=== PATIENT | female | born 1985 | race Caucasian/White ===

== ENCOUNTER 2018-11-23 07:13 | Day surgery (SDC) | payer BC ==
[~2018-11-23] VITALS: Ht 170.2 cm; Wt 129.5 kg
[~2018-11-23 07:13] MED LIST: CARV25TA2 PO; DOXY100C14 PO; FERR325T14 PO; GABA600T7 PO; GENT30OI2 TP; HYDROmorphone 2 MG/ML VIAL IV PRN; IV RINGERS,LACTATED 1000ML 1,000 ML IV SCH; LEVO50TA5 PO; LIDOCAINE 1% PF 2 ML VIAL. ID PRN; MORPHINE SULFATE 2 MG/ML VIAL. IV PRN; NORG1TAB40 PO; ONDANSETRON PF 4 MG/2 ML VIAL. IV PRN; PROCHLORPERAZINE 10 MG/2 ML VIAL. IV PRN; SACU1TAB PO; SERT100T8 PO; TRAM50TA PO; [UNRECOGNIZED DRUG - OTHER] PO; ceFAZolin SODIUM 3 GM in IV DEXTROSE 5% 100ML 100 ML IV PRN; fentaNYL PF VIAL 100 MCG/2 ML VIAL IV PRN
[2018-11-23] MEDS ORDERED: BUPIVACAINE MPF 0.5% 30 ML VIAL. ONE (07:32)
[2018-11-23] MEDS ORDERED: LIDOCAINE 2% PF 5 ML VIAL. ONE (08:26)
[2018-11-23] MEDS ORDERED: PROPOFOL 20 ML IV ONE (08:26)
[2018-11-23] MEDS ORDERED: fentaNYL PF VIAL 100 MCG/2 ML VIAL ONE ×2 (08:26→09:41)
[2018-11-23] MEDS ORDERED: ROCURONIUM 50 MG/5 ML VIAL. ONE (08:26)
[2018-11-23 08:34] LABS: CALCIUM 10.3 mg/dL (8.5-10.1); CREATININE 2.4 mg/dL (0.6-1.0); GFR 23.4; POTASSIUM 5.1 mmol/L (3.5-5.1)
[2018-11-23] MEDS ORDERED: ETOMIDATE 20 MG/10 ML VIAL. IV ONE (08:35)
[2018-11-23 08:37] LABS: ALBUMIN 2.6 g/dL (3.4-5.0); ALBUMIN/GLOBULIN RATIO 0.4 (1.0-1.7); TOTAL BILIRUBIN 1.4 mg/dL (0.2-1.0)
--- NOTE | 2018-11-23 08:37 | PDOC ---
SURGICAL PROGRESS NOTE Subjective 33 yo F with multiple indurated, painful skin lesions, purplish in color with some now ulcerating. TO OR for biopsy. Left pannus lesion selected with pt. R/R/B/A d/w pt and pt's supportive mother. Risks, including, but not limited to: bleeding, infection, damage to surrounding structures, risk of anesthesia, risk of wound complications. They appear to understand, their questions are answered and they elect to proceed. Office note reviewed and unchanged. Vital Signs Vital Signs Date Time Temp Pulse Resp B/P (MAP) Pulse Ox O2 Delivery O2 Flow Rate FiO2 11/23/18 07:59 97.8 84 20 93/58 96 Room Air 97.8 JACOB CAMPBELL MD Nov 23, 2018 08:37
[2018-11-23] MEDS ORDERED: ONDANSETRON PF 4 MG/2 ML VIAL. ONE (09:34)
[2018-11-23] MEDS ORDERED: DEXAMETHASONE SOD PHOS 4 MG/ML VIAL ONE (09:35)
[2018-11-23] MEDS ORDERED: SEVOFLURANE 31 TO 60 MINUTES. IH ONE (10:04)
--- NOTE | 2018-11-23 10:33 | PDOC4 ---
OPERATIVE NOTE Date: Date: Nov 23, 2018 Pre-Op Diagnosis: Skin lesions on pannus Post-Op Diagnosis: same Procedure Performed: Excisional biopsy of abdominal wall pannus, LLQ Surgeon: Ty Campbell Anesthesia Type: GETA plus local Blood Loss: 10 Specimans Obtained: Skin ulcer Findings: Multiple indurated skin lesions of pannus Complications: none Operative Note: After obtaining informed consent, patient was taken to OR, induced under GETA and prepped in the usual fashion. LLQ abdominal wall pannus lesion selected. Transverse elliptical incision made with cautery, approximately 5 cm diameter. Incision carried down through skin and subcutaneous fat, excising indurated area. Specimen sent to lab for evaluation. Culture obtained of skin fold ulceration. Skin repaired with 3 0 vicryl and 4 0 monocryl in loose, interrupted fashion. Dressing placed. Patient tolerated procedure well and sent to PACU in stable condition. All counts correct. Wound class is 4. JACOB CAMPBELL MD Nov 23, 2018 10:33
[2018-11-23] MEDS ORDERED: HYDROcodone/APAP 5/325MG 1 TAB TABLET PO ONE (10:45)
[2018-11-23 10:56] VITALS: BP 103/49
--- NOTE | 2018-11-29 18:05 | PATHOLOGY ---
[facility] Accession Number: [id number] . 01 Material submitted: . abdomen - ABDOMINAL WALL BIOPSY . 01 Clinical history: . R/O calciphylaxis, abdominal skin lesions. . 02 Diagnosis: Skin, abdominal wall: - Consistent with calciphylaxis (see comment). . (SAS:jase; 11/29/2018) QMS/11/29/2018 . 02 Comment: Histologically, all eight blocks were evaluated with a von Kossa calcium stain, performed with an appropriate positive control, which documents the H and E findings of calcification of small to medium-sized vessels. It also documents extravascular calcification. On H and E stained sections, there is marked necrosis of both the epidermis and dermis secondary to ischemia. Scattered microthrombi are also histologically seen. 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 . This case has been co-reviewed by a second board-certified dermatopathologist, Dr. Mills, with consensus. (SAS:[facility]; 11/29/2018) . Special stain: von Kossa . 02 Electronically signed: . Marla Lovell MD, Pathologist NPI- [id number] . 01 Gross description: . The specimen is received fresh and is designated "abdominal wall biopsy". This consists of an ellipse of wrinkled garland skin and yellow subcutaneous tissue which measures up to 8.3 x 4.8 cm and measures approximately 3.3 cm in depth. The specimen is not oriented. On the skin surface, there is an irregular mottled reddish-purple lesion which measures up to 4.5 cm in greatest dimension and is within a few millimeters of the closest mid inked side margins. The skin and underlying subcutaneous tissue are indurated. The margins of resection are inked with black ink. On sectioning, the subcutaneous fat is firm and shows focal more pale yellowish areas. Multiple desk representative sections are submitted as A1-A8. . (JPM:[facility] 11/23/2018) SYC/SYC . 02 Pathologist provided ICD-10: E83.59 . 02 CPT . 821420, 390896, 772620, 089378, 583982, 017496, 862064, 698662, 333453 Specimen Comment: A courtesy copy of this report has been sent to Specimen Comment: [phone], . Specimen Comment: Report sent to / DR BETANCOURT Performed at: 01 [facility] [address] [place] [address] [address], [place] [id number] MD Sen Plata MD Phone: [phone] Performed at: 02 [facility] [address] [id number] MD Marla Lovell MD Phone: [phone]
== END 2018-11-23 11:30 | disposition home or self-care (01) ==
LOC: SURG 07:13
PROVIDERS: ATTEND Surgery
DX: L98.8 Other specified disorders of the skin and subcutaneous tissue (principal); L98.7 Excessive and redundant skin and subcutaneous tissue; E65 Localized adiposity; E03.9 Hypothyroidism, unspecified; I50.9 Heart failure, unspecified; Z72.89 Other problems related to lifestyle; Z79.899 Other long term (current) drug therapy
CPT/HCPCS: 11406; 36415; 80053; 84702; 87071; 87075; 87102; 88305; 88313; A7015; J1100; J2001; J2405; J2704; J3010; J3490; A4461

== ENCOUNTER → 2019-01-10 | Outpatient (CLI) | payer BC ==
[~2019-01-10] MED LIST changes: -HYDROmorphone 2 MG/ML VIAL IV PRN; -IV RINGERS,LACTATED 1000ML 1,000 ML IV SCH; -LIDOCAINE 1% PF 2 ML VIAL. ID PRN; -MORPHINE SULFATE 2 MG/ML VIAL. IV PRN; -ONDANSETRON PF 4 MG/2 ML VIAL. IV PRN; -PROCHLORPERAZINE 10 MG/2 ML VIAL. IV PRN; -ceFAZolin SODIUM 3 GM in IV DEXTROSE 5% 100ML 100 ML IV PRN; -fentaNYL PF VIAL 100 MCG/2 ML VIAL IV PRN
--- NOTE | 2019-01-11 13:00 | SLEEP ---
DATE OF STUDY: 01/10/2019 HOME SLEEP STUDY REFERRING PHYSICIAN: Ny Murrell MD The patient is 33 years old who weighs 283 pounds with a BMI of 44. The patient's Plover score was 5. The patient underwent home sleep study performed at [facility]. Total recording time was 476 minutes. During the night study, the patient had 244 mixed apneas, 57 obstructive apneas, no central apneas and 167 hypopneas. The patient's apnea hypopnea index was 59 per hour. Nocturnal oximetry study revealed an average oxygen saturation of 93% with lowest of 73%. 66 minutes were spent in oxygen saturation less than 90%. Mean heart rate was 65 beats per minute. IMPRESSION: 1. Severe sleep apnea-hypopnea syndrome at an apnea-hypopnea index of 59 per hour. 2. Nocturnal hypoxia secondary to obstructive sleep apnea. RECOMMENDATIONS: 1. The patient would benefit from return to the sleep lab for in-lab titration study. 2. Once optimum CPAP pressure is achieved, then follow up in 4-6 weeks to assess compliance with CPAP and to document clinical improvement. 3. Weight loss is strongly advised. 4. Avoid [employer] depressants. 5. Cautioned regarding driving until symptoms of sleep apnea resolved with the use of CPAP. LUIS CARLOS SCHMIDT MD DR: GIOVANNY/nile JOB#: [id number] / [id number] [place] Salmeron MD
== END | disposition home or self-care (01) ==
LOC: RT 09:02
PROVIDERS: ATTEND Internal Medicine Cardiovascular Disease
DX: G47.33 Obstructive sleep apnea (adult) (pediatric) (principal); G47.34 Idiopathic sleep related nonobstructive alveolar hypoventilation
CPT/HCPCS: G0399

== ENCOUNTER → 2019-05-02 | Outpatient (CLI) | payer BC ==
--- NOTE | 2019-05-02 10:27 | CARD ---
MR#: [id number] Date of Study: 05/02/2019 Ordering Physician: NY SILVA, Referring Physician: NY SILVA, Tech: Poppy Magana GREG APPROVED REPORT EXAM: Two-dimensional and M-mode echocardiogram with Doppler and color Doppler. Other Information Quality : Fair Technically limited study due to morbid obesity INDICATION Pulmonary Hypertention 2D DIMENSIONS RVDd3.9 (2.9-3.5cm)Left Atrium(2D)4.0 (1.6-4.0cm) IVSd1.1 (0.7-1.1cm)Aortic Root(2D)3.2 (2.0-3.7cm) LVDd5.6 (3.9-5.9cm)LVOT Diameter2.2 (1.8-2.4cm) PWd1.2 (0.7-1.1cm)LVDs3.9 (2.5-4.0cm) FS (%) 30.1 %SV88.1 ml LVEF(%)56.6 (>50%) Aortic Valve AoV Peak Rodney.196.7cm/sAoV VTI32.4cm AO Peak GR.15.5mmHgLVOT Peak Rodney.133.6cm/s AO Mean GR.8mmHgAVA (VMAX)2.54cm2 MARIAN (VTI)2.90cm2 Mitral Valve MV E Ebqgxjza43.8cm/sMV DECEL [id number] MV A Yrpmpeyz33.0cm/sE/A Ratio1.2 Pulmonary Vein S1 Wnjeduhs34.6cm/sD2 Voencbzx14.1cm/s LEFT VENTRICLE The left ventricle is normal size. There is mild concentric left ventricular hypertrophy. The left ve ntricular systolic function is normal and the ejection fraction is within normal range. The Ejection Fraction is 55-60%. There is normal LV segmental wall motion. The left ventricular diastolic function and filling is normal for age. RIGHT VENTRICLE The right ventricle is mildly dilated. The right ventricular systolic function is normal. ATRIA The left atrium is mildly dilated. The right atrium size is normal. The interatrial septum is intact with no evidence for an atrial septal defect or patent foramen ovale as noted on 2-D or Doppler imagi ng. AORTIC VALVE The aortic valve is not well visualized but appears to be functioning normally by Doppler interrogati on. Doppler and Color Flow revealed trace aortic regurgitation. There is no significant aortic valvul ar stenosis. MITRAL VALVE The mitral valve is normal in structure and function. There is no evidence of mitral valve prolapse. There is no mitral valve stenosis. Doppler and Color Flow revealed no mitral valve regurgitation note d. TRICUSPID VALVE The tricuspid valve is normal in structure and function. Doppler and Color Flow revealed no tricuspid valve regurgitation noted. There is no tricuspid valve stenosis. PULMONIC VALVE The pulmonic valve is not well visualized. Doppler and Color Flow revealed mild pulmonic valvular reg urgitation. There is no pulmonic valvular stenosis. GREAT VESSELS The aortic root is normal in size. The ascending aorta is moderately dilated at 3.8 cm. The IVC is no rmal in size and collapses >50% with inspiration. PERICARDIAL EFFUSION There is no evidence of significant pericardial effusion. Critical Notification Critical Value: No <Conclusion> The left ventricular systolic function is normal and the ejection fraction is within normal range. Th e Ejection Fraction is 55-60%. There is normal LV segmental wall motion. The ascending aorta is moderately dilated at 3.8 cm. Signed by : Ny Silva, Electronically Approved : 05/02/2019 10:26:24
== END | disposition home or self-care (01) ==
LOC: ECHO 08:59
PROVIDERS: ATTEND Internal Medicine Cardiovascular Disease
DX: I08.8 Other rheumatic multiple valve diseases (principal); I11.9 Hypertensive heart disease without heart failure
CPT/HCPCS: 93306

== ENCOUNTER → 2019-05-19 | Outpatient (CLI) | payer BC ==
--- NOTE | 2019-05-19 12:24 | RAD ---
EXAM: CT OF THE CHEST WITHOUT CONTRAST. HISTORY: Ascending aortic dilatation. TECHNIQUE: Computed tomography of the chest was performed without intravenous contrast. COMPARISON: None. FINDINGS: Images of the upper abdomen reveal no acute abnormality. Bone windows reveal no suspicious lesions. Scattered small lymph nodes within the mediastinum are not pathologically enlarged. There are no enlarged axillary lymph nodes. There is no pleural or pericardial effusion. The heart is not enlarged. The main pulmonary artery measures 4.4 cm. The aorta measures 3.7 cm at the sinuses of Valsalva. It measures 4.3 cm in the ascending portion. The proximal arch measures 3.5 cm. The distal arch, 2.7 cm. The proximal descending portion, 2.7 cm. At the hiatus, 2.3 cm. A pleural-based nodule in the left lower lobe on image 44 measures 5 mm. There are no acute infiltrates. IMPRESSION: 1. Pulmonary arterial enlargement suggests pulmonary arterial hypertension. Correlate clinically for causes. 2. Mild ascending aortic ectasia at 4.3 cm. 3. A 5 mm left lower lobe nodule is likely benign in this demographic. No further follow-up is required in the absence of strong risk factors. *One or more of the following individualized dose reduction techniques were utilized for this examination: 1. Automated exposure control. 2. Adjustment of the mA and/or kV according to patient size. 3. Use of iterative reconstruction technique. Electronically signed by: Mark Medina MD (05/19/2019 12:21 PM) [facility]
== END | disposition home or self-care (01) ==
LOC: CT 10:28
PROVIDERS: ATTEND Internal Medicine Cardiovascular Disease
DX: I71.2 Thoracic aortic aneurysm, without rupture (principal); I77.89 Other specified disorders of arteries and arterioles; R91.1 Solitary pulmonary nodule
CPT/HCPCS: 71250

== ENCOUNTER → 2020-02-02 | Outpatient (CLI) | payer BC ==
--- NOTE | 2020-02-02 14:02 | CARD ---
MR#: [id number] Date of Study: 02/02/2020 Ordering Physician: DEONTE SILAV, Referring Physician: DEONTE SILVA, Tech: Poppy Magana [facility] APPROVED REPORT EXAM: Two-dimensional and M-mode echocardiogram with Doppler and color Doppler. Other Information Quality : Fair Technically limited study due to body habitus. INDICATION Pulmonary Hypertention Morbid Obesity 2D DIMENSIONS RVDd4.2 (2.9-3.5cm)Left Atrium(2D)4.3 (1.6-4.0cm) IVSd1.2 (0.7-1.1cm)Aortic Root(2D)3.4 (2.0-3.7cm) LVDd5.4 (3.9-5.9cm)LVOT Diameter2.5 (1.8-2.4cm) PWd1.2 (0.7-1.1cm)LVDs3.9 (2.5-4.0cm) FS (%) 27.6 %SV74.5 ml LVEF(%)55.0 (>50%) Aortic Valve AoV Peak Rodney.93.9cm/sAoV VTI18.4cm AO Peak GR.3.5mmHgLVOT Peak Rodney.112.8cm/s AO Mean GR.2mmHgAVA (VMAX)5.99cm2 Mitral Valve MV E Yxejjfkv723.0cm/sMV DECEL YRMM398yg MV A Lretmeyi57.8cm/sE/A Ratio1.5 Tricuspid Valve TR P. Piiydpfp304vy/sRAP APNDWBKO2qxUz TR Peak Gr.05qvNnHSUT27noTt Pulmonary Vein S1 Cppekglv04.8cm/sD2 Viigzcso61.6cm/s LEFT VENTRICLE The left ventricle is normal size. There is mild concentric left ventricular hypertrophy. The left ve ntricular systolic function is normal and the ejection fraction is within normal range. The Ejection Fraction is 55-60%. There is normal LV segmental wall motion. The left ventricular diastolic function and filling is normal for age. RIGHT VENTRICLE The right ventricle is mildly dilated. The right ventricular systolic function is normal. ATRIA The left atrium is mildly dilated. The right atrium is mildly dilated. The interatrial septum is inta ct with no evidence for an atrial septal defect or patent foramen ovale as noted on 2-D or Doppler im aging. AORTIC VALVE The aortic valve is not well visualized but appears to be functioning normally by Doppler interrogati on. Doppler and Color Flow revealed no significant aortic regurgitation. There is no significant aort ic valvular stenosis. MITRAL VALVE The mitral valve is normal in structure and function. There is no evidence of mitral valve prolapse. There is no mitral valve stenosis. Doppler and Color Flow revealed no mitral valve regurgitation note d. TRICUSPID VALVE The tricuspid valve is normal in structure and function. Doppler and Color Flow revealed trace to mil d tricuspid regurgitation. There is moderate pulmonary hypertension. The PA pressure was estimated at 51 mmHg. There is no tricuspid valve stenosis. PULMONIC VALVE The pulmonic valve is not well visualized. Doppler and Color Flow revealed no pulmonic valvular regur gitation. There is no pulmonic valvular stenosis. GREAT VESSELS The aortic root is normal in size. The ascending aorta is moderately dilated at 3.7 cm. The IVC is di lated and collapses >50% with inspiration. PERICARDIAL EFFUSION There is no evidence of significant pericardial effusion. Critical Notification Critical Value: No <Conclusion> The left ventricular systolic function is normal and the ejection fraction is within normal range. Th e Ejection Fraction is 55-60%. There is normal LV segmental wall motion. Doppler and Color Flow revealed trace to mild tricuspid regurgitation. There is moderate pulmonary hy pertension. The PA pressure was estimated at 51 mmHg. The ascending aorta is moderately dilated at 3.7 cm. Signed by : Deonte Silva, Electronically Approved : 02/02/2020 14:02:14
== END | disposition home or self-care (01) ==
LOC: ECHO 10:55
PROVIDERS: ATTEND Internal Medicine Cardiovascular Disease
DX: I07.1 Rheumatic tricuspid insufficiency (principal); I27.0 Primary pulmonary hypertension
CPT/HCPCS: 93306

== ENCOUNTER → 2020-08-07 | Outpatient (CLI) | payer BC ==
[~2020-08-07] MED LIST changes: +CONTRAST GIVEN. MC PRN; +IOHEXOL 350 MG/ML 100 ML VIAL. IV ONE; +SERT-268 PO; -SERT100T8 PO
--- NOTE | 2020-08-07 15:14 | RAD ---
CT angiography of the chest, CT of the abdomen and pelvis with contrast 08/07/2020 INDICATION: Ascending aortic dilatation. Surgical site infection status post hip replacement. COMPARISON STUDY: CT of the chest May 19, 2019 TECHNIQUE: Multidetector CTA imaging of the chest was performed both before and after the administrat ion of IV contrast. Subsequently CT imaging of the abdomen and pelvis was performed after the adminis tration of the initial bolus. 3-D reconstructions of thoracic vasculature were created on an [facility] ent workstation. FINDINGS: CHEST: Heart size is normal. No pericardial effusion is identified. Motion artifact is seen throughout the heart and mediastinum including the ascending thoracic aorta. This somewhat limits evaluation. The th oracic aorta measures approximately 3 cm above the sinotubular junction. The thoracic aorta measures 3.9 cm at the level the main pulmonary artery. The thoracic aorta measures 2.7 cm at the level of the left subclavian artery. The descending thoracic aorta is normal in course and contour. Allowing for aforementioned motion artifact no gross dissection is identified. No pathologically enlarged mediastinal lymph nodes are identified. Scattered small mediastinal lymph nodes are noted. The appearance is unchanged in the interim. The right main pulmonary artery is mildl y prominent measuring 2.6 cm in diameter. The left pulmonary artery measures approximately 2.3 cm in diameter. There is no pneumothorax, or pleural effusion. No acute focal infiltrates are identified. Abdomen and pelvis: Liver, gallbladder, adrenal glands, spleen, pancreas are grossly unremarkable. There is a 1 cm hypodense lesion in the anterior right kidney. Density of this lesion however is high er than would be expected for a simple cyst with Hounsfield units approximately 37. Recommend further characterization with multiphase CT exam. There is no bowel obstruction. There is no evidence of acute inflammatory change involving the bowel . Evaluation of the bladder, bowel within the deep pelvis, and uterus and adnexa is limited secondary to extensive beam hardening artifact from bilateral total hip arthroplasties. No gross bowel abnorma lity is identified. Portions of the patient's right flank including the skin and subcutaneous fat extend beyond the field -of-view. Within the subcutaneous tissues overlying the right hip is a ovoid fluid collection measuri ng approximately 4 x 2 x 7 cm differential considerations include seroma, hematoma, or abscess. Some fat stranding within the adjacent subcutaneous tissues noted. Similar multifocal stranding is seen wi thin the patient's pannus. The fluid collection does not appear to extend to the joint. Allowing for some areas of obscured visualization secondary to artifact from the prosthesis no definitive involvem ent of overlying musculature is seen. No acute osseous changes are identified. IMPRESSION: 1. Ectasia of the ascending thoracic aorta as described. When measured at a comparable fashion, this appears stable to minimally smaller. 2. Prominence of the pulmonary arteries which can be seen with pulmonary arterial hypertension 3. Fluid collection within the subcutaneous tissues overlying the right hip measuring approximately 4 x 2 x 7cm. Differential considerations include seroma. Hematoma, or abscess 4. 1 cm indeterminate lesion in the anterior right kidney. Differential considerations include a hemo rrhagic or atypical cyst versus a solid neoplasm. Multiphase CT recommended for further characterizat ion CT DOSING PQRS STATEMENT: One or more of the following individualized dose reduction techniques were utilized for this examinat ion: 1. Automated exposure control 2. Adjustment of the mA and/or kV according to patient size 3. Use of iterative reconstruction technique Electronically signed by: Reyes Phillips MD (08/07/2020 3:11 PM) [email or web address]
== END ==
LOC: CT 12:50
PROVIDERS: ATTEND Internal Medicine Cardiovascular Disease
DX: I77.810 Thoracic aortic ectasia (principal); I27.20 Pulmonary hypertension, unspecified
CPT/HCPCS: 71275; Q9967

== ENCOUNTER → 2020-08-07 | Outpatient (CLI) | payer BC ==
[~2020-08-07] MED LIST changes: +IOHEXOL 240 MG/ML 50ML VIAL. PO ONE; -IOHEXOL 350 MG/ML 100 ML VIAL. IV ONE
--- NOTE | 2020-08-07 15:14 | RAD ---
CT angiography of the chest, CT of the abdomen and pelvis with contrast 08/07/2020 INDICATION: Ascending aortic dilatation. Surgical site infection status post hip replacement. COMPARISON STUDY: CT of the chest May 19, 2019 TECHNIQUE: Multidetector CTA imaging of the chest was performed both before and after the administrat ion of IV contrast. Subsequently CT imaging of the abdomen and pelvis was performed after the adminis tration of the initial bolus. 3-D reconstructions of thoracic vasculature were created on an psychiatric ent workstation. FINDINGS: CHEST: Heart size is normal. No pericardial effusion is identified. Motion artifact is seen throughout the heart and mediastinum including the ascending thoracic aorta. This somewhat limits evaluation. The th oracic aorta measures approximately 3 cm above the sinotubular junction. The thoracic aorta measures 3.9 cm at the level the main pulmonary artery. The thoracic aorta measures 2.7 cm at the level of the left subclavian artery. The descending thoracic aorta is normal in course and contour. Allowing for aforementioned motion artifact no gross dissection is identified. No pathologically enlarged mediastinal lymph nodes are identified. Scattered small mediastinal lymph nodes are noted. The appearance is unchanged in the interim. The right main pulmonary artery is mildl y prominent measuring 2.6 cm in diameter. The left pulmonary artery measures approximately 2.3 cm in diameter. There is no pneumothorax, or pleural effusion. No acute focal infiltrates are identified. Abdomen and pelvis: Liver, gallbladder, adrenal glands, spleen, pancreas are grossly unremarkable. There is a 1 cm hypodense lesion in the anterior right kidney. Density of this lesion however is high er than would be expected for a simple cyst with Hounsfield units approximately 37. Recommend further characterization with multiphase CT exam. There is no bowel obstruction. There is no evidence of acute inflammatory change involving the bowel . Evaluation of the bladder, bowel within the deep pelvis, and uterus and adnexa is limited secondary to extensive beam hardening artifact from bilateral total hip arthroplasties. No gross bowel abnorma lity is identified. Portions of the patient's right flank including the skin and subcutaneous fat extend beyond the field -of-view. Within the subcutaneous tissues overlying the right hip is a ovoid fluid collection measuri ng approximately 4 x 2 x 7 cm differential considerations include seroma, hematoma, or abscess. Some fat stranding within the adjacent subcutaneous tissues noted. Similar multifocal stranding is seen wi thin the patient's pannus. The fluid collection does not appear to extend to the joint. Allowing for some areas of obscured visualization secondary to artifact from the prosthesis no definitive involvem ent of overlying musculature is seen. No acute osseous changes are identified. IMPRESSION: 1. Ectasia of the ascending thoracic aorta as described. When measured at a comparable fashion, this appears stable to minimally smaller. 2. Prominence of the pulmonary arteries which can be seen with pulmonary arterial hypertension 3. Fluid collection within the subcutaneous tissues overlying the right hip measuring approximately 4 x 2 x 7cm. Differential considerations include seroma. Hematoma, or abscess 4. 1 cm indeterminate lesion in the anterior right kidney. Differential considerations include a hemo rrhagic or atypical cyst versus a solid neoplasm. Multiphase CT recommended for further characterizat ion CT DOSING PQRS STATEMENT: One or more of the following individualized dose reduction techniques were utilized for this examinat ion: 1. Automated exposure control 2. Adjustment of the mA and/or kV according to patient size 3. Use of iterative reconstruction technique Electronically signed by: Reyes Phillips MD (08/07/2020 3:11 PM) [email or web address]
== END ==
LOC: CT 11:12
PROVIDERS: ATTEND Specialist
DX: T81.49XA Infection following a procedure, other surgical site, initial encounter (principal); Z96.641 Presence of right artificial hip joint; I77.810 Thoracic aortic ectasia; I27.20 Pulmonary hypertension, unspecified; N28.9 Disorder of kidney and ureter, unspecified
CPT/HCPCS: 74177; Q9966